=== PATIENT | male | born 1985 | race American Indian/Alaskan Native ===

== ENCOUNTER 2020-06-27 14:19 | Emergency (ER) | payer MEDICAID, SELFPAY ==
--- NOTE | 2020-06-27 15:39 | ED.GENADULT ---
HPI - General Adult General Chief complaint: General Medical Stated complaint: sore throat Time Seen by Provider: 06/27/20 15:39 Source: patient Mode of arrival: ambulatory Limitations: no limitations History of Present Illness HPI narrative: 34 y/o male presenting with sore throat x6 days. He has been using warm salt water gargles and Chloraseptic spray with some mild improvement. He has been smoking excessive marijuana which he thinks is worsening his sore throat. He denies all other symptoms of URI. He has no exposure to COVID-19. No fever, chills, N/V, cough, SOB or chest pain. MD complaint: sore throat Related Data Previous Rx's Medication Instructions Recorded amoxicillin 500 mg PO Q12H #20 tab 06/27/20 Allergies Allergy/AdvReac Type Severity Reaction Status Date / Time No Known Allergies Allergy Unverified 05/07/20 16:15 Review of Systems Review of Systems: Constitutional: No Fever, No Chills ENT/Mouth: + sore throat, No Rhinorrhea, + Swallowing Difficulty Eyes: No Eye Pain, No Swelling, No Redness Cardiovascular: No Chest Pain, No SOB, No Orthopnea, No Edema Respiratory: No Cough, No Sputum, No Wheezing, No dyspnea Gastrointestinal: No Nausea, No Vomiting, No Diarrhea, No abdominal Pain, No Hematochezia, No Melena Genitourinary: No Dysuria, No Urinary Frequency, No Hematuria Musculoskeletal: No joint pain, No Myalgias Skin: No Skin Lesions, No rash Neuro: No Weakness, No Numbness, No Dizziness, No Headache Psych: No Anxiety/Panic, No Depression Heme/Lymph: No Bruising, No Lymphadenopathy Endocrine: No Polyuria, No Polydipsia PMFSH Past Medical History Attestation statement: The following information was validated with the patient. Medical History (Updated 06/27/20 @ 15:49 by ROSEMARIE Nobles) No known health problems Social History Social History Advance Directives: No Advance Directives Information Provided: No Physical Exam Vital Signs: Vital Signs: Last Vital Signs Temp 98.6 F 06/27/20 15:40 Pulse 73 06/27/20 15:40 Resp 20 06/27/20 15:40 BP 132/76 06/27/20 15:40 Pulse Ox 99 06/27/20 15:40 Body Mass Index 34.4 Appearance: Alert. Oriented X3. No acute distress. Eyes: Pupils equal, round and reactive to light. ENT: moderate pharyngeal erythema with tonsillar exudates bilaterally, R>L. No evidence of peritonsillar abscess. Neck: Normal inspection. Neck supple. CVS: Normal heart rate and rhythm. Pulses normal. Respiratory: No respiratory distress. Breath sounds normal. Abdomen: Soft and nontender. +BS x4 Skin: Skin warm and dry. Normal skin color. Normal skin turgor. No rashes. Extremities: No lower extremity edema. Neuro: Oriented X 3. No motor deficit. No sensory deficit. Course Course Course Narrative: exam consistent with Strep pharyngitis. No signs of peritonsillar abscess. Patient was not cooperative with throat swab. Will empirically treat for Strep. Pateint agrees with plan. This is his 3rd episode of pharyngitis in the last 2 years, he would like referral to ENT for possible tonsillectomy. Stable for d/c. Discharge Plan Discharge Clinical Impression: Pharyngitis Qualifiers: Pharyngitis/tonsillitis etiology: streptococcus Qualified Code(s): J02.0 - Streptococcal pharyngitis Patient Disposition: Home, Self-Care Instructions: Strep Throat (ED) Additional Instructions: Use warm salt water gargles 3-4 times per day. Take the entire course of antibiotics prescribed. Use over the counter Chloraseptic spray or Cepacol lozenges for sore discomfort. If you develop worsening pain, difficulty swallowing, change in voice or are unable to swallow your own saliva come back to the ER for further evaluation. Prescriptions: New amoxicillin 500 mg tablet 500 mg PO Q12H Qty: 20 RF: 0 Referrals: Ruslan Lorenzo [Physician] - 2 days Interventions: ED Discharge Assessment Last Done: 06/27/20 16:27 Discharge Date/Time: 06/27/20 16:31
[2020-06-27 15:40] VITALS: BP 132/76; PULSE 73; RESP 20; TEMP 37; O2SAT 99; BMI 34.4
== END 2020-06-27 16:31 | disposition home or self-care (01) ==
LOC: HO.ED 15:59
PROVIDERS: Emergency Provider Emergency Medicine
DX: J02.0 Streptococcal pharyngitis (principal)
CPT/HCPCS: 99283

== ENCOUNTER 2021-01-12 10:51 | Inpatient (IN) | payer OTHER, SELFPAY ==
[2021-01-12 10:56] VITALS: BP 146/74; PULSE 88; RESP 16; TEMP 36.9; O2SAT 96; BMI 35.2
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
[2021-01-12 13:38] LABS: MANUAL DIFF FLAG NO
[2021-01-12 13:41] LABS: Basophils Percent Auto 0.6 % (0-2); Eosinophils Percent Auto 0.6 % (0-4); Hematocrit 42.6 % (42-52); Hemoglobin 14.4 g/dl (14.0-18.0); Imm Gran Abs Auto 0.03 X10*3/uL (0.00-0.03); Imm Gran Pct Auto 0.4 % (0.0-0.4); Lymphocytes Absolute Auto 1.6 X10*3/uL (1.2-4.9); Lymphocytes Percent Auto 23.9 % (20-40); Mean Corpuscular HGB Conc 33.8 g/dl (31.0-36.0); Mean Corpuscular Hemoglobin 31.4 pg (27.0-33.0); Mean Corpuscular Volume 92.8 fL (80-98); Monocytes Absolute Auto 0.5 X10*3/uL (0.1-1.2); Monocytes Percent Auto 6.7 % (2-11); Neutrophils Absolute Auto 4.7 X10*3/uL (2.0-8.3); Neutrophils Percent Auto 67.8 % (45-73); Platelet Count 258 X10*3/uL (160-400); Red Blood Count 4.59 X10*6/uL (4.60-5.80); Red Cell Distribution Width 13.4 % (11.0-16.0); White Blood Count 6.9 X10*3/uL (4.8-10.8)
[2021-01-12 14:10] LABS: Alanine Aminotransferase 33 U/L (0-40); Albumin Level 4.3 g/dL (3.5-5.0); Alkaline Phosphatase 64 U/L (39-117); Anion Gap 13 (12-20); Aspartate Amino Transferase 19 U/L (5-37); Bilirubin Direct 0.2 mg/dL (0.0-0.5); Bilirubin Total 0.2 mg/dL (0.0-1.0); Blood Urea Nitrogen 10 mg/dL (9-16); Calcium 9.5 mg/dL (8.4-10.2); Carbon Dioxide 24 mmol/L (22-29); Chloride 108 mmol/L (96-108); Creatinine Clr Calc Pharmacy 126.5; Estimated Glomerular Filt Rate > 60; Glucose Random 107 mg/dL (60-115); Potassium 4.1 mmol/L (3.3-5.1); Sodium 141 mmol/L (135-145)
[2021-01-12 14:20] LABS: Amphetamine Screen Urine Not Detected (Not Detect); Barbiturates, Urine Not Detected (Not Detect); Benzodiazepines Screen Urine Not Detected (Not Detect); Cannabinoid Screen Urine POSITIVE (Not Detect); Cocaine Screen Urine Not Detected (Not Detect); Opiate Screen Urine Not Detected (Not Detect); Phencyclidine Screen Urine Not Detected (Not Detect)
--- NOTE | 2021-01-12 16:34 | MHC.CARE ---
N unable to provide a clinician to complete evaluation until later this evening. CARE team called N to report that the case will be taken over by the CARE team, and requested that pt's insurance be called and notified of this.
[2021-01-12] MEDS: LORazepam 1 MG TABLET 2 MG PO (16:41)
--- NOTE | 2021-01-12 16:44 | PC.NURSE ---
Late entry: BHN called stating no clinician would be available to eval pt until later on second shift, possibly not until third shift. This RN relayed this to the pt. Pt became agitated stating he had to get back to his home and that it is unlocked. Pt angry, wanting to self discharge this RN explained to pt due to his suicidal statements that staff could not d/c him until he has been evaluated by BHN or CARE team. Pt amenable to taking po ativan, medicated per mar. Ibrahim from CARE team in to assess pt at this time.
--- NOTE | 2021-01-12 18:07 | PC.NURSE ---
pt becoming agitated again regarding becoming a section 12 bedsearch. Security on standby. Per [place] [facility] will be taking pt tonight.
--- NOTE | 2021-01-12 18:13 | MHC.CARE ---
Pt was evaluated by CARE team disposition for inpt psychiatric level of care. Disposition was discussed with ED provider who is in agreement with plan for admission. M5 has an available male bed this evening and pt has been verbally presented for admission. [facility] has been contacted to initiate process of obtaining a prior authorization. Pt is aware of plan and is not agreeable. Given pt's level of risk for harm to self, he has been placed on a Section 12a pending admission. If pt is not voluntary for admission, he may be admitted on a Section 12b.
--- NOTE | 2021-01-12 20:53 | PC.NURSE ---
Patient calm and quiet in his room with his girl friend at bedside, patient swabbed for covid/pending result, awaiting M5 admission, will continue to monitor.
[2021-01-12 20:57] LABS: COVID-19 Test Negative (Negative); IDNOW Serial# 9DD0AD1C
[2021-01-13 01:34] VITALS: BMI 36.1
--- NOTE | 2021-01-13 01:54 | PC.ADMIT ---
At the beginning of admission Pt was calm, stable, cooperative, made good eye contact. Pt states he came to ED d/t SI over the past 3 days but he feels ready to go home now. Care Team Assessment reports he made a noose and suspended it from a rafter in his basement. Pt was inconstant reporting alcohol use. Pt seems to have limited insight. Pt denies SI and HI. Pt contracts for safety and is in control of aggressive impulses. Pt reports acid changed him from a violent/bad person to a much better person 4 years ago but when he took it again 4 months ago, it did not have the same effect. Pt was describing a damaging effect. Pt has been dealing with many stressors: Losing his Job, losing his car, he is in court to keep his house. Pt was surprised to find out he had a roommate and quickly became paranoid and agitated stating that he was forced to sign documents and he came here of his own free will to get restarted on meds and now he cant leave. Pt assured us he will be leaving tomorrow. Pt was allowed to sleep in room 505 for the night. Pt labile, paranoid, but not aggressive.
[2021-01-13 05:54] VITALS: BP 137/86; PULSE 74; TEMP 36.4; O2SAT 99
--- NOTE | 2021-01-13 07:59 | PC.NURSE ---
3 day notice submitted
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
[2021-01-13] MEDS: FLUoxetine HCl Oral Solution 20 MG/5 ML SOLUTION 10 MG PO (11:05)
--- NOTE | 2021-01-13 14:19 | PM.PSYDC ---
DS: Providers Provider Date of Service: 01/13/21 Date of admission: 01/12/21 22:59 Date of discharge: 01/13/21 Primary care physician: Unknown Physician Attending physician on discharge: Robi Chaves DS: Diagnosis Discharge Diagnosis (1) Adjustment disorder with depressed mood: Status: Acute DS: Medications Discharge Medications Home Medications: Previous Rx's Medication Instructions Recorded amoxicillin 500 mg PO Q12H #20 tab 06/27/20 Discharge Plan Discharge Patient Disposition: Home, Self-Care Discharge Diagnosis: Adjustment disorder with depressed mood Referrals: Tracy Thrasher (Therapy) [Other] - 01/20/21 11:00 am (This appointment is via Telehealth) Ruma Ferrer (Psychiatry) [Other] - 02/08/21 11:00 am (This appointment is via Telehealth) Ruma Ferrer (Psychiatry) [Other] - 03/09/21 11:00 am (This appointment is via Telehealth) [facility] [Other] - 1 Week (Please call [facility] for telephone support and additional resources if you are unable to reach your outpatient providers and are experiencing a mental health crisis. They are open 13/03.) Physician,Unknown [Primary Care Provider] - 1 Week Discharge Medications: New trazodone 50 mg Tablet 50 mg PO BEDTIME PRN (Reason: Insomnia) 14 Days Qty: 14 RF: 0 fluoxetine [Prozac] 10 mg capsule 10 mg PO DAILY Qty: 14 RF: 1 Continued amoxicillin 500 mg tablet 500 mg PO Q12H Qty: 20 RF: 0 Discharge Orders: Discharge Order (Routine); Ordered 01/13/21 Ordered By: Robi Chaves Diet: advance to usual diet Activity on Discharge: As tolerated Stand Alone Forms: Patient Portal Discharge page, Community Support Care Plan Goals: Continue with Care plan goals Health Concerns: Continue treatment by PCP Plan of Treatment: Continue with PHP for psychiatric treatment Assessment: Adult Puertor[place] male, highly functional at [facility] with several stressors, admitted for the report of suicidality, but he adamantly denied it and he wants to be treated as an outpatient. Mental Status Exam Mental Status Exam Patient Appearance: Well Grooomed Patient Orientation: Person, Place, Time and Situation Level of Consciousness: Awake and Appropriate Patient Behavior: Appropriate Mood Description: Calm Affect Description: Constricted Patient Cognition Impaired: No Ability to Follow Directions: Good Speech Pattern: Clear Memory Description: Intact Hallucinations: None Delusions: Not Present Thought Process: Goal Oriented Thought Content: positive for Intact Depressive Symptoms: Increased Anxiety Judgement: Fair Data Data Completed and Pending Completed studies during hospitalization [Text1]: 01/12/21 01/12/21 01/12/21 13:24 13:24 13:31 WBC 6.9 RBC 4.59 L Hgb 14.4 Hct 42.6 MCV 92.8 MCH 31.4 MCHC 33.8 RDW 13.4 Plt Count 258 MPV 10.0 Immature Gran % (Auto) 0.4 Neut % (Auto) 67.8 Lymph % (Auto) 23.9 [place] % (Auto) 6.7 Eos % (Auto) 0.6 Baso % (Auto) 0.6 Lymph # (Auto) 1.6 [place] # (Auto) 0.5 Eos # (Auto) 0.0 Baso # (Auto) 0.0 Abs Immat Gran (auto) 0.03 Absolute Neuts (auto) 4.7 Absolute Nucleated RBC 0.000 Nucleated RBC % (auto) 0.0 Sodium 141 Potassium 4.1 Chloride 108 Carbon Dioxide 24 Anion Gap 13 BUN 10 Creatinine 0.91 Estim Creat Clear Calc 126.5 Estimated GFR > 60 Random Glucose 107 Calcium 9.5 Total Bilirubin 0.2 Direct Bilirubin 0.2 AST 19 ALT 33 Alkaline Phosphatase 64 Total Protein 7.0 Albumin 4.3 Urine Opiates Screen Not Detected Ur Barbiturates Screen Not Detected Ur Phencyclidine Scrn Not Detected Ur Amphetamines Screen Not Detected U Benzodiazepines Scrn Not Detected Urine Cocaine Screen Not Detected U Marijuana (THC) Screen POSITIVE H COVID-19 (TIA) COVID-19 Clin Com 01/12/21 20:29 WBC RBC Hgb Hct MCV MCH MCHC RDW Plt Count MPV Immature Gran % (Auto) Neut % (Auto) Lymph % (Auto) [place] % (Auto) Eos % (Auto) Baso % (Auto) Lymph # (Auto) [place] # (Auto) Eos # (Auto) Baso # (Auto) Abs Immat Gran (auto) Absolute Neuts (auto) Absolute Nucleated RBC Nucleated RBC % (auto) Sodium Potassium Chloride Carbon Dioxide Anion Gap BUN Creatinine Estim Creat Clear Calc Estimated GFR Random Glucose Calcium Total Bilirubin Direct Bilirubin AST ALT Alkaline Phosphatase Total Protein Albumin Urine Opiates Screen Ur Barbiturates Screen Ur Phencyclidine Scrn Ur Amphetamines Screen U Benzodiazepines Scrn Urine Cocaine Screen U Marijuana (THC) Screen COVID-19 (TIA) Negative COVID-19 Clin Com See Note DS: Summary Hospital Course Hospital Course: The patient was admitted by the ED since there was the report of suicidal ideation with the plan to hang himself. The patient had several psychosocial stressors in the last 3 months: he lost his job due to the pandermia, he broke up with his girlfriend and his children moved out, also, he had financial constraints. He came to the ED asking to restart Prozac and Trazodone that historically has helped but apparently, there was the report of suicidality. During the intake interview, the patient was future oriented, his mood was midlyd dysphoric but his affect was bright with no evidence of safety concerns. He wanted to continue treatment by PHP instead of inpatient. The patient denied adamantly suicidal thoughts and collateral information was provided that corroborates the safety of the patient. Time spent discussing smoking cessation with patient: 3 to 10 minutes Status at Discharge Cognitive/behavioral status at discharge: Stable Functional status at discharge: independent ambulation Overall status at discharge: patient is back to baseline Time Spent with Patient Time attestation: Total time spent providing and/or coordinating discharge services: Time spent: Less than 30 minutes
== END 2021-01-13 15:10 | disposition home or self-care (01) | DRG 754 ==
LOC: HO.ED 20:28 → HO.PM5 23:09
PROVIDERS: Nurse Practitioner Family; Physician Assistant; Admitting Provider Psychiatry & Neurology Psychiatry; Emergency Provider Emergency Medicine; Visit Provider Psychiatry & Neurology Psychiatry
DX: F43.21 Adjustment disorder with depressed mood (principal); R45.851 Suicidal ideations; F17.200 Nicotine dependence, unspecified, uncomplicated; Z71.6 Tobacco abuse counseling; Z20.822 Contact with and (suspected) exposure to COVID-19; Z79.899 Other long term (current) drug therapy
CPT/HCPCS: 36415; 80048; 80076; 80307; 85025; 87635; 99285

== ENCOUNTER 2021-08-16 05:03 | Emergency (ER) | payer MEDICAID, SELFPAY ==
[2021-08-16 05:22] VITALS: BP 162/93; PULSE 64; RESP 20; TEMP 36.3; O2SAT 98; BMI 39.1
== END 2021-08-16 11:15 | disposition left against medical advice (07) ==
PROVIDERS: Emergency Provider Emergency Medicine
DX: M54.9 Dorsalgia, unspecified (principal)
CPT/HCPCS: 99281; 99282

== ENCOUNTER 2021-11-01 14:02 | Emergency (ER) | payer MEDICAID, SELFPAY ==
--- NOTE | ~2021-11-01 | XR_ITS ---
EXAMINATION: XR CHEST CLINICAL INFORMATION: Palpitations. COMPARISON: Chest radiograph dated from 05/16/2019. TECHNIQUE: PA view of the chest was obtained. FINDINGS: Stable appearance of the cardiomediastinal silhouette including left greater than right hilar fullness. No focal airspace opacities, pleural effusions or pneumothorax. No acute osseous abnormalities. The upper abdomen is within normal limits. XR/XR chest 1V IMPRESSION: No acute cardiopulmonary findings.
[2021-11-01 14:28] VITALS: BP 132/79; PULSE 60; RESP 17; TEMP 36.6; O2SAT 98; BMI 37.6
--- NOTE | 2021-11-01 15:49 | ECG_ITS ---
Test Reason : PALPITATIONS Blood Pressure : / mmHG Vent. Rate : 059 BPM Atrial Rate : 059 BPM P-R Int : 162 ms QRS Dur : 102 ms QT Int : 422 ms P-R-T Axes : 025 003 002 degrees QTc Int : 417 ms Sinus bradycardia Minimal voltage criteria for LVH, may be normal variant ( R in aVL ) Borderline ECG When compared with ECG of 16-MAY-2019 21:34, No significant change was found Referred By: Dionicio Merchant Electronically Signed By:HEATHER TSAI
[2021-11-01 16:14] LABS: MANUAL DIFF FLAG NO
[2021-11-01 16:16] LABS: Basophils Percent Auto 0.5 % (0-2); Eosinophils Percent Auto 0.3 % (0-4); Hematocrit 46.9 % (42.0-52.0); Hemoglobin 15.5 g/dl (14.0-18.0); Imm Gran Abs Auto 0.03 X10*3/uL (0.00-0.03); Imm Gran Pct Auto 0.4 % (0.0-0.4); Lymphocytes Absolute Auto 1.3 X10*3/uL (1.2-4.9); Mean Corpuscular Hemoglobin 31.1 pg (27.0-33.0); Mean Platelet Volume 9.9 fL (9.4-12.4); Monocytes Absolute Auto 0.5 X10*3/uL (0.1-1.2); Monocytes Percent Auto 6.9 % (2-11); Neutrophils Absolute Auto 5.8 x10*3/uL (2.0-8.3); Neutrophils Percent Auto 74.9 % (45-73); Platelet Count 282 X10*3/uL (160-400); Red Blood Count 4.99 X10*6/uL (4.60-5.80); Red Cell Distribution Width 13.5 % (11.0-16.0); White Blood Count 7.8 X10*3/uL (4.8-10.8)
[2021-11-01 16:21] LABS: INTERNATIONAL NORM RATIO 1.1 (0.9-1.1); Prothrombin Time 12.1 SEC (9.9-13.0)
[2021-11-01 16:24] LABS: Partial Thromboplastin Time 33.9 SEC (24.1-38.0)
[2021-11-01 16:33] LABS: D Dimer High Sensitivity < 150 NG/ML
[2021-11-01 16:40] LABS: Troponin-I High Sensitivity < 3.5 ng/L (<3.5-35.0)
[2021-11-01 16:44] LABS: Alanine Aminotransferase 24 U/L (0-40); Albumin Level 4.9 g/dL (3.5-5.0); Alkaline Phosphatase 63 U/L (39-117); Anion Gap 14 (12-20); Aspartate Amino Transferase 21 U/L (5-37); Bilirubin Total 0.3 mg/dL (0.0-1.0); Blood Urea Nitrogen 11 mg/dL (9-16); Calcium 10.1 mg/dL (8.4-10.2); Carbon Dioxide 27 mmol/L (22-29); Chloride 107 mmol/L (96-108); Creatinine Clr Calc Pharmacy 129.4; Estimated Glomerular Filt Rate > 60; Glucose Random 97 mg/dL (60-115); Potassium 4.6 mmol/L (3.3-5.1); Sodium 143 mmol/L (135-145); Total Protein 8.5 g/dL (6.5-8.0)
[2021-11-01 16:55] LABS: TSH reflex Free T4 1.39 uIU/mL (0.32-4.0)
--- NOTE | 2021-11-01 17:06 | MHC.CARE ---
Pt reports that he was in therapy prior to the pandemic, but hasn't been in therapy since. He reports increased anxiety attacks where he feels like he is going to have a heart attack and would like to be connected with outpatient psychiatric providers. CARE Team will refer pt to [facility].
--- NOTE | 2021-11-01 17:19 | ED.GENADULT ---
HPI - General Adult General Chief complaint: Anxiety Stated complaint: rapid heart beat Time Seen by Provider: 11/01/21 15:48 Source: patient Mode of arrival: ambulatory Limitations: no limitations History of Present Illness HPI narrative: 35-year-old male with history of anxiety, bipolar, depression presents to ED for palpitations and feeling anxious. patient states having anxiety and would like to speak to a care team consulted so they refer him back to program. Patient states always worrying and than having heart palpitations. patient states while at home started having worrisome thoughts and started having palpitations chest so he came to the ED to be evaluated more so to receive referred program for therapist and psychiatrist. Patient denies any suicidal or homicidal ideation. Related Data Previous Rx's Medication Instructions Recorded amoxicillin 500 mg tablet 500 mg PO Q12H #20 tab 01/13/21 fluoxetine 10 mg capsule (Prozac) 10 mg PO DAILY #14 cap 01/13/21 trazodone 50 mg tablet 50 mg PO BEDTIME PRN 14 Days #14 01/13/21 tab Allergies Allergy/AdvReac Type Severity Reaction Status Date / Time No Known Allergies Allergy Unverified 05/07/20 16:15 Review of Systems Review of Systems: Palpitations Yes all other systems are reviewed and are negative [facility] Past Medical History Medical History No known health problems Social History Social History Household Members: None Housing: House Do you presently have visiting nurse or other home services: No Alcohol intake: current Alcohol intake frequency: holidays/special occasions only Substance Use Type: Hallucinogens and Marijuana Advance Directives: No Advance Directives Information Provided: No service: No Sexual orientation: Straight/Heterosexual Physical Exam ED Vital Signs: Vital Signs - 24 hr 11/01/21 14:28 Temperature 98 F Pulse Rate 60 Respiratory Rate 17 Blood Pressure 132/79 Pulse Oximetry 98 BMI result Body Mass Index 37.6 Const General: cooperative, healthy appearing, comfortable, no acute distress, well developed, alert, awake and Physically active Orientation/consciousness: patient oriented x3 HENMT Head: Yes normal to inspection, Yes No palpable skull fracture present, Yes normocephalic and Yes atraumatic Ears: hearing grossly normal bilaterally, external ears normal, TM's normal bilaterally, EAC's normal, mastoids normal and no periauricular adenopathy Eyes General: appearance normal, both eyes and all related structures Neck Neck: Yes normal visual inspection, Yes full ROM, Yes no lymphadenopathy, Yes trachea midline, No supple, No anterior neck swelling and Yes tender Chest Chest palpation & inspection: normal inspection of the chest and normal palpation of entire chest wall Resp Effort & Inspection: normal respiratory effort and able to speak in complete sentences Auscultation: clear to auscultation bilaterally Cardio Jugular venous distension: no JVD Heart sounds: S1 normal heart sound present and S2 normal heart sound present GI Inspection: Yes normal to inspection and No abdominal wall ecchymosis Palpation (GI): Soft to palpation, not firm, nontender, no guarding and not rigid General: No CVA tenderness and Yes no CVA tenderness Back/Spine/Pelvis Back: no CVA tenderness, No CVA tenderness and No back tenderness Skin General skin exam: no rashes or lesions noted and elasticity normal Neuro Other: negative facial droop. Negative slurred speech. Negative pronoatr drift. All extremities equal strength 5+. Finger to nose rapid hand movement intact. Negative Romberg. NIH score is 0. General: patient oriented x3, gait normal, tone normal, moves all extremities and Normal light touch and pain sensation Cranial nerves: Yes CN's II-XII intact bilaterally Extrem Other: lower extremities negative for pitting edema, calf tenderness, erythema or swelling Psych Appearance: grossly normal, well kempt and not disheveled Course Course Course Narrative: will do medical evaluation including cardiac due to patient stating palpitations. Patient presently denies any palpitation but wants to be seen for anxiety Reevaluation(s) Reevaluation #1: EKG negative for STEMI. D-dimer and troponin and TSH negative. Rest of labs are normal. Care team consulted Catrina roland and evaluated patient referred him to a therapist and psychiatrist. Time: 18:48 Medical Decision Making [facility] Narrative Medical decision making narrative: anxiety. Palpitation Lab Data Result diagrams: 11/01/21 16:03 11/01/21 16:03 Labs: Lab Results 11/01/21 11/01/21 11/01/21 Range/Units 16:03 16:03 16:03 WBC 7.8 (4.8-10.8) X10*3/uL RBC 4.99 (4.60-5.80) X10*6/uL Hgb 15.5 (14.0-18.0) g/dl Hct 46.9 (42.0-52.0) % MCV 94.0 (80.0-98.0) fL MCH 31.1 (27.0-33.0) pg MCHC 33.0 (31.0-36.0) g/dl RDW 13.5 (11.0-16.0) % Plt Count 282 (160-400) X10*3/uL MPV 9.9 (9.4-12.4) fL Immature Gran % (Auto) 0.4 (0.0-0.4) % Neut % (Auto) 74.9 H (45-73) % Lymph % (Auto) 17.0 L (20-40) % [place] % (Auto) 6.9 (2-11) % Eos % (Auto) 0.3 (0-4) % Baso % (Auto) 0.5 (0-2) % Lymph # (Auto) 1.3 (1.2-4.9) X10*3/uL [place] # (Auto) 0.5 (0.1-1.2) X10*3/uL Eos # (Auto) 0.0 (0.0-0.4) X10*3/uL Baso # (Auto) 0.0 (0.0-0.2) X10*3/uL Abs Immat Gran (auto) 0.03 (0.00-0.03) X10*3/uL Absolute Neuts (auto) 5.8 (2.0-8.3) x10*3/uL Absolute Nucleated RBC 0.000 (0.0-0.012) X10*3/uL Nucleated RBC % (auto) 0.0 (0.0-0.2) /100WBC PT 12.1 (9.9-13.0) SEC INR 1.1 (0.9-1.1) APTT 33.9 (24.1-38.0) SEC D-Dimer High Sensitivty < 150 NG/ML Sodium 143 (135-145) mmol/L Potassium 4.6 (3.3-5.1) mmol/L Chloride 107 (96-108) mmol/L Carbon Dioxide 27 (22-29) mmol/L Anion Gap 14 (12-20) BUN 11 (9-16) mg/dL Creatinine 0.98 (0.5-1.4) mg/dL Estim Creat Clear Calc 129.4 Estimated GFR > 60 Random Glucose 97 (60-115) mg/dL Calcium 10.1 D (8.4-10.2) mg/dL Total Bilirubin 0.3 (0.0-1.0) mg/dL AST 21 (5-37) U/L ALT 24 (0-40) U/L Alkaline Phosphatase 63 (39-117) U/L Troponin I High Sens (<3.5-35.0) ng/L Total Protein 8.5 H D (6.5-8.0) g/dL Albumin 4.9 (3.5-5.0) g/dL TSH 1.39 (0.32-4.0) uIU/mL 11/01/21 Range/Units 16:03 WBC (4.8-10.8) X10*3/uL RBC (4.60-5.80) X10*6/uL Hgb (14.0-18.0) g/dl Hct (42.0-52.0) % MCV (80.0-98.0) fL MCH (27.0-33.0) pg MCHC (31.0-36.0) g/dl RDW (11.0-16.0) % Plt Count (160-400) X10*3/uL MPV (9.4-12.4) fL Immature Gran % (Auto) (0.0-0.4) % Neut % (Auto) (45-73) % Lymph % (Auto) (20-40) % [place] % (Auto) (2-11) % Eos % (Auto) (0-4) % Baso % (Auto) (0-2) % Lymph # (Auto) (1.2-4.9) X10*3/uL [place] # (Auto) (0.1-1.2) X10*3/uL Eos # (Auto) (0.0-0.4) X10*3/uL Baso # (Auto) (0.0-0.2) X10*3/uL Abs Immat Gran (auto) (0.00-0.03) X10*3/uL Absolute Neuts (auto) (2.0-8.3) x10*3/uL Absolute Nucleated RBC (0.0-0.012) X10*3/uL Nucleated RBC % (auto) (0.0-0.2) /100WBC PT (9.9-13.0) SEC INR (0.9-1.1) APTT (24.1-38.0) SEC D-Dimer High Sensitivty NG/ML Sodium (135-145) mmol/L Potassium (3.3-5.1) mmol/L Chloride (96-108) mmol/L Carbon Dioxide (22-29) mmol/L Anion Gap (12-20) BUN (9-16) mg/dL Creatinine (0.5-1.4) mg/dL Estim Creat Clear Calc Estimated GFR Random Glucose (60-115) mg/dL Calcium (8.4-10.2) mg/dL Total Bilirubin (0.0-1.0) mg/dL AST (5-37) U/L ALT (0-40) U/L Alkaline Phosphatase (39-117) U/L Troponin I High Sens < 3.5 (<3.5-35.0) ng/L Total Protein (6.5-8.0) g/dL Albumin (3.5-5.0) g/dL TSH (0.32-4.0) uIU/mL ECG Data Interpretation: sinus bradycardia. Ventricular rate is 54. Parents were 158. QRS 100. QTC 400. Negative STEMI Discharge Plan Discharge Clinical Impression: Acute anxiety, Heart palpitations Patient Disposition: Home, Self-Care Instructions: Heart Palpitations (ED), Anxiety (ED) Additional Instructions: BLOOD WORK AND EKG CAME BACK NORMAL. ALK CARE TEAM SENIOR SECURITY ANALYST SPOKE WITH YOU AND GIVE YOU REFERRALS FOR PSYCHIATRIST AND THERAPIST PROGRAM. PLEASE CALL BOTH FOR FOLLOW-UP. RETURN TO THE ED IMMEDIATELY FOR ANY CHEST PAIN, SHORTNESS OF BREATH, RECURRENT PALPITATIONS, LEG SWELLING, CALF PAIN, COUGHING UP BLOOD, WEAKNESS, FEVER, CHILLS, OR ANY OTHER CONCERNING SYMPTOMS. Prescriptions: No Action trazodone 50 mg Tablet 50 mg PO BEDTIME PRN (Reason: Insomnia) 14 Days Qty: 14 0RF fluoxetine [Prozac] 10 mg capsule 10 mg PO DAILY Qty: 14 1RF amoxicillin 500 mg tablet 500 mg PO Q12H Qty: 20 0RF Interventions: ED Discharge Assessment Last Done: 11/01/21 18:22 Discharge Date/Time: 11/01/21 18:23 Print Language: Ukrainian
== END 2021-11-01 18:23 | disposition home or self-care (01) ==
PROVIDERS: Physician Assistant; Emergency Provider Emergency Medicine
DX: R00.2 Palpitations (principal); F41.9 Anxiety disorder, unspecified; F43.21 Adjustment disorder with depressed mood; F12.90 Cannabis use, unspecified, uncomplicated; Z79.899 Other long term (current) drug therapy
CPT/HCPCS: 36415; 71045; 80053; 84443; 84484; 85025; 85379; 85610; 85730; 93005; 99283

== ENCOUNTER → 2021-12-30 13:58 | Outpatient (BNVA) | payer MEDICAID, SELFPAY | PROVIDERS: PCP Family Medicine; Referring Provider Family Medicine; Visit Provider Internal Medicine Cardiovascular Disease | DX: R00.2 Palpitations (principal) | CPT/HCPCS: 99202 ==

== ENCOUNTER 2022-01-02 13:59 | Emergency (ER) | payer MEDICAID, SELFPAY ==
[2022-01-02] VITALS (9 sets, daily range): BP systolic 113–157; BP diastolic 64–97; PULSE 64–85; RESP 14–24; TEMP 36.4–37.2; O2SAT 96–100; BMI 40.3
--- NOTE | ~2022-01-02 | XR_ITS ---
EXAMINATION: XR CHEST CLINICAL INFORMATION: Decreased breath sounds right COMPARISON: Chest radiograph 11/01/2021 TECHNIQUE: Frontal view of the chest was obtained. FINDINGS: Compared to the prior study, the lungs are markedly hypoinflated. There is new left basilar atelectasis with some minimal obscuration of the short segment right hemidiaphragm. No pleural effusions are seen. No evidence of CHF. Heart size normal. XR/XR chest 1V IMPRESSION: Hypoinflated lungs with new left lower lobe atelectasis.
--- NOTE | ~2022-01-02 | XR_ITS ---
EXAMINATION: XR SHOULDER, LEFT CLINICAL INFORMATION: Status post reduction of left shoulder dislocation. COMPARISON: Left shoulder x-rays of 01/02/2022, obtained at 2:51 PM. TECHNIQUE: A single AP view of the left shoulder. FINDINGS: Glenohumeral joint alignment is normal on the submitted AP view. Acromioclavicular joint alignment is maintained. No definite associated fracture is noted. No dystrophic soft tissue calcifications. Visualized thorax is unremarkable. XR/XR shoulder LT 1V IMPRESSION: On submitted single AP view of the left shoulder the glenohumeral joint alignment is normal. No associated acute osseous fracture.
--- NOTE | ~2022-01-02 | XR_ITS ---
EXAMINATION: XR SHOULDER, LEFT CLINICAL INFORMATION: Deformity. Decreased range of motion. COMPARISON: None TECHNIQUE: Three views of the left shoulder. FINDINGS: There is anterior inferior dislocation of the humeral head with respect to the glenoid. There is a cortical deformity of the humeral head questionable for Hill-Sachs lesion. No other fracture is seen. Soft tissues are unremarkable. XR/XR shoulder LT min 2V IMPRESSION: Left shoulder dislocation.
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
[2022-01-02] MEDS: Morphine Sulfate 10 MG/ML CARTRIDGE 6 MG IVPUSH (19:20)
--- NOTE | 2022-01-02 19:20 | PC.NURSE ---
Dr. Stiles and Michael HOUSTON at bedside for conscious sedation. Timeout done for pt Deondre Paredes for procedure Left shoulder reduction with anterior rotation 100mg propofol administered by Dr. Stiles. Pt also premedicated with morphine 6 mg and zofran 4mg. Pt appears to be tolerating procedure well, will continue to monitor.
[2022-01-02] MEDS: ondansetron HCL 4 MG/2 ML VIAL IVPUSH (19:22)
[2022-01-02] MEDS: propofoL 200 MG/20 ML VIAL IVPUSH (19:23)
--- NOTE | 2022-01-02 19:39 | PC.NURSE ---
Pt has been alert during procedure, procedure went well pt is in a left arm sling, shoulder has been reduced. Pt is talking on cell phone during procedure.
--- NOTE | 2022-01-02 19:46 | PC.NURSE ---
Pt is alert, talkative, and vital signs stable, tolerating sedation well.
--- NOTE | 2022-01-02 19:48 | PC.NURSE ---
Pt awake A&O x4 vital signs stable. Sedation period over, will continue to monitor periodically until discharge.
== END 2022-01-02 21:15 | disposition home or self-care (01) ==
PROVIDERS: Emergency Provider Internal Medicine
DX: S43.005A Unspecified dislocation of left shoulder joint, initial encounter (principal); R06.89 Other abnormalities of breathing; Y04.0XXA Assault by unarmed brawl or fight, initial encounter; Y93.9 Activity, unspecified; Y92.9 Unspecified place or not applicable; Y99.9 Unspecified external cause status
CPT/HCPCS: 23650; 71045; 73020; 73030; 96374; 96375; 99284; 99291; J2270; J2405

== ENCOUNTER → 2022-01-11 08:44 | Outpatient (BNVA) | payer MEDICAID, SELFPAY | PROVIDERS: Visit Provider Physician Assistant | DX: S43.015A Anterior dislocation of left humerus, initial encounter (principal) | CPT/HCPCS: 99202 ==

== ENCOUNTER → 2022-04-01 13:04 | Outpatient (REF) | payer MEDICAID, SELFPAY ==
--- NOTE | 2022-04-01 13:19 | ECG_ITS ---
Hook-up date: 2022-04-01 12:33:00 Duration: 47:59:00 Test Indications: PALPITATIONS, SOB Medications: 156995 QRS complexes 1 Ventricular ectopics which represent <1 % of total QRS comp. 4 Supraventricular ectopics which represent <1 % of total QRS comp. * Paced QRS complexs which represent % of total QRS comp. VENTRICULAR ECTOPY 1 Isolated 0 Bigeminal Cycles 0 Couplets 0 Runs 0 Beats in Runs * Beats LONGEST at * BPM at :: -- * Beats FASTEST at * BPM at :: -- SUPRAVENTRICULAR ECTOPY 2 Isolated 1 Couplets 0 Runs 0 Beats in Runs * Beats LONGEST at * BPM at :: -- * Beats FASTEST at * BPM at :: -- HEART RATES 44 MIN at 09:28:05 2022-04-02 71 AVG 129 MAX at 23:58:42 2022-04-01 LONGEST RR 1.4720 secs at 04:51:39 2022-04-03 S-T LEVELS Channel 1 - 128 mm at 12:33:00 2022-04-01 - 128 mm at 12:33:00 2022-04-01 Channel 2 - 128 mm at 12:33:00 2022-04-01 - 128 mm at 12:33:00 2022-04-01 Channel 3 - 128 mm at 03:15:21 -- - 128 mm at 03:15:21 Basic rhythm Normal sinus rhythm No long pause or profound bradycardia No dangerous dysrhythm periods No diary submitted Referred By: Richard Quintero Overread By: RICHARD QUINTERO MD
== END ==
LOC: HO.CARD 13:04
PROVIDERS: Visit Provider Internal Medicine Cardiovascular Disease
DX: R06.02 Shortness of breath (principal); R00.2 Palpitations
CPT/HCPCS: 93225; 93226

== ENCOUNTER 2022-08-03 21:17 | Emergency (ER) | payer MEDICAID, SELFPAY ==
--- NOTE | ~2022-08-03 | US_ITS ---
EXAMINATION: US ABDOMEN LIMITED CLINICAL INFORMATION: Right upper quadrant pain question cholecystitis. COMPARISON: None TECHNIQUE: Real-time imaging of the right upper quadrant abdominal viscera. FINDINGS: PANCREAS: The visualized portions of the pancreas are unremarkable but the majority of the gland is obscured by bowel gas with the exception of a small portion of the pancreatic head. LIVER: The liver is normal in size. The liver contour is normal. There is diffuse increased liver parenchymal echogenicity, consistent with hepatic steatosis. No focal hepatic lesion. There is no intrahepatic biliary duct dilatation seen. GALLBLADDER: The gallbladder is physiologically distended without evidence of stones, sludge, polyps, wall thickening or pericholecystic fluid. COMMON BILE DUCT: Normal in caliber measuring 0.2 cm in diameter. RIGHT KIDNEY: No hydronephrosis. No renal calculi or focal parenchymal lesions. The kidney measures 10.5 cm in maximum dimension. FREE FLUID: None. US/US abdomen limited IMPRESSION: 1. Hepatic steatosis. 2. Normal-appearing gallbladder without evidence of cholecystitis. 3. A cause for the patient's right upper quadrant pain has not been found.
[2022-08-03 22:07] VITALS: BP 137/101; PULSE 73; RESP 18; TEMP 36.7; O2SAT 96; BMI 41.1
--- NOTE | 2022-08-03 22:31 | ED_ITS ---
HPI - Abdominal Pain General Chief Complaint: Abdominal Pain Stated Complaint: Right side pain Time Seen by Provider: 08/03/22 22:29 Source: patient Mode of arrival: ambulatory Limitations: no limitations History of Present Illness HPI narrative: Patient comes here for right upper quadrant pain for last month or so with no relation to food no nausea no vomiting or diarrhea no fever or chills patient does not drink alcohol Related Data Previous Rx's Medication Instructions Recorded fluoxetine 10 mg capsule (Prozac) 10 mg PO DAILY #14 caps 01/13/21 trazodone 50 mg tablet 50 mg PO BEDTIME PRN Insomnia 14 01/13/21 days #14 tabs oxycodone 5 mg capsule 5 mg PO BID PRN pain #8 caps 01/02/22 Allergies Allergy/AdvReac Type Severity Reaction Status Date / Time No Known Allergies Allergy Unverified 01/11/22 08:57 Review of Systems Review of Systems Yes all other systems are reviewed and are negative [facility] Past Medical History Medical History No known health problems Family History Family History Father No problems noted. Mother HTN (hypertension) Social History Social History Household Members: None Housing: House Do you presently have visiting nurse or other home services: No Alcohol intake: current Alcohol intake frequency: a few times a month Alcohol type: hard liquor Smoked in Last 30 Days: No Use of substances other than those prescribed or required for medical reasons: No Substance Use Type: Marijuana Advance Directives: No service: No Sexual orientation: Straight/Heterosexual Physical Exam ED Vital Signs: Vital Signs - 24 hr 08/03/22 22:07 08/03/22 23:26 Temperature 98.0 F 98.6 F Pulse Rate 73 72 Respiratory Rate 18 16 Blood Pressure 137/101 H 138/91 H Pulse Oximetry 96 97 Oxygen Delivery Method Room Air Room Air BMI result Body Mass Index 41.1 Appearance: Alert. Oriented X3. No acute distress. Eyes: PERRLA, No Nystagmus no pallor or icterus ENT: Pharynx normal. Oral Mucosa moist Neck: Normal inspection. Neck supple. CVS: Normal heart rate and rhythm. Pulses normal. Respiratory: No respiratory distress. Equal air entry bilateral, no wheezing/rales/rhonchi Abdomen: Soft and right upper quadrant tenderness no rebound tenderness no guarding Bowel sounds are present, no mass palpable, no CVA tenderness Skin: Skin warm and dry. Normal skin color. Normal skin turgor. Extremities: No lower extremity edema. No calf tenderness Neuro: Oriented X 3. No motor deficit. Medical Decision Making Medical Decision Making MDM Narrative: Patient's ultrasound showed hepatic steatosis all were empty patient comfortable discharge patient home advised to avoid carbohydrate and not to drink alcohol Lab Data Result Diagrams: 08/03/22 22:48 08/03/22 23:30 Labs: Lab Results 08/03/22 08/03/22 08/03/22 Range/Units 22:48 22:48 23:30 WBC 8.7 (4.8-10.8) X10*3/uL RBC 5.13 (4.60-5.80) X10*6/uL Hgb 15.7 (14.0-18.0) g/dl Hct 45.6 (42.0-52.0) % MCV 88.9 (80.0-98.0) fL MCH 30.6 (27.0-33.0) pg MCHC 34.4 (31.0-36.0) g/dl RDW 13.3 (11.0-16.0) % Plt Count 335 (160-400) X10*3/uL MPV 9.5 (9.4-12.4) fL Immature Gran % (Auto) 0.2 (0.0-0.4) % Neut % (Auto) 56.9 (45-73) % Lymph % (Auto) 31.5 (20-40) % Martin % (Auto) 8.6 (2-11) % Eos % (Auto) 1.5 (0-4) % Baso % (Auto) 1.3 (0-2) % Lymph # (Auto) 2.7 (1.2-4.9) X10*3/uL Martin # (Auto) 0.8 (0.1-1.2) X10*3/uL Eos # (Auto) 0.1 (0.0-0.4) X10*3/uL Baso # (Auto) 0.1 (0.0-0.2) X10*3/uL Abs Immat Gran (auto) 0.02 (0.00-0.03) X10*3/uL Absolute Neuts (auto) 4.9 (2.0-8.3) x10*3/uL Absolute Nucleated RBC 0.000 (0.0-0.012) X10*3/uL Nucleated RBC % (auto) 0.0 (0.0-0.2) /100WBC Sodium 140 (135-145) mmol/L Potassium 4.3 (3.3-5.1) mmol/L Chloride 107 (96-108) mmol/L Carbon Dioxide 24 (22-29) mmol/L Anion Gap 13 (12-20) BUN 14 (9-16) mg/dL Creatinine 1.12 (0.5-1.4) mg/dL Estim Creat Clear Calc 110.5 Estimated GFR > 60 Random Glucose 107 (60-115) mg/dL Calcium 9.8 (8.4-10.2) mg/dL Total Bilirubin 0.3 (0.0-1.0) mg/dL Direct Bilirubin < 0.2 (0.0-0.5) mg/dL AST 20 (5-37) U/L ALT 28 (0-40) U/L Alkaline Phosphatase 72 (39-117) U/L Total Protein 7.7 (6.5-8.0) g/dL Albumin 4.8 (3.5-5.0) g/dL Lipase 44 (8-78) U/L Urine Color Yellow Urine Appearance Clear Urine pH 6.5 (5.0-9.0) Ur Specific [place] >= 1.030 H (1.005-1.025) Urine Protein Trace (Neg-Trace) mg/dL Urine Glucose (UA) Negative (Negative) mg/dL Urine Ketones Trace (Negative) mg/dL Urine Blood Negative (Negative) Urine Nitrite Negative (Negative) Ur Leukocyte Esterase Negative (Negative) Discharge Plan Discharge Clinical Impression: Abdominal pain, Fatty liver Patient Disposition: Home, Self-Care Instructions: Non-Alcoholic Fatty Liver Disease (ED), Abdominal Pain (ED) Additional Instructions: Drink plenty of fluids avoid alcohol and carbohydrate Exercise Ibuprofen for pain as needed Prescriptions: No Action trazodone 50 mg Tablet 50 mg PO BEDTIME PRN (Reason: Insomnia) 14 Days Qty: 14 0RF fluoxetine [Prozac] 10 mg capsule 10 mg PO DAILY Qty: 14 1RF oxycodone 5 mg capsule 5 mg PO BID PRN (Reason: pain) Qty: 8 0RF Rx Instructions: Patient can partially filled prescription upon request Interventions: ED Discharge Assessment Last Done: 08/04/22 00:38 Discharge Date/Time: 08/04/22 00:38
[2022-08-03 22:54] LABS: MANUAL DIFF FLAG NO
[2022-08-03 22:56] LABS: Appearance Urine Clear; Basophils Absolute Auto 0.1 X10*3/uL (0.0-0.2); Basophils Percent Auto 1.3 % (0-2); Color Urine Yellow; Eosinophils Absolute Auto 0.1 X10*3/uL (0.0-0.4); Eosinophils Percent Auto 1.5 % (0-4); Glucose Urine UA Negative (Negative); Hematocrit 45.6 % (42.0-52.0); Hemoglobin 15.7 g/dl (14.0-18.0); Imm Gran Abs Auto 0.02 X10*3/uL (0.00-0.03); Imm Gran Pct Auto 0.2 % (0.0-0.4); Leukocyte Esterase Urine Negative (Negative); Lymphocytes Absolute Auto 2.7 X10*3/uL (1.2-4.9); Lymphocytes Percent Auto 31.5 % (20-40); Mean Corpuscular HGB Conc 34.4 g/dl (31.0-36.0); Mean Corpuscular Hemoglobin 30.6 pg (27.0-33.0); Mean Corpuscular Volume 88.9 fL (80.0-98.0); Mean Platelet Volume 9.5 fL (9.4-12.4); Monocytes Absolute Auto 0.8 X10*3/uL (0.1-1.2); Monocytes Percent Auto 8.6 % (2-11); Neutrophils Absolute Auto 4.9 x10*3/uL (2.0-8.3); Neutrophils Percent Auto 56.9 % (45-73); Nitrite Urine Negative (Negative); PH 6.5 (5.0-9.0); Platelet Count 335 X10*3/uL (160-400); Red Blood Count 5.13 X10*6/uL (4.60-5.80); Red Cell Distribution Width 13.3 % (11.0-16.0); Specific Gravity - Urine >= 1.030 (1.005-1.025); Urine Blood Negative (Negative); Urine Ketones Trace mg/dL (Negative); Urine Protein Trace mg/dL (Neg-Trace); White Blood Count 8.7 X10*3/uL (4.8-10.8)
--- NOTE | 2022-08-03 23:10 | PC.NURSE ---
Pt aox4. Reports right flank pain, 4/10. Familly at bedside. VSS. No apparent distress noted. IV access established with no issues or concerns. Lab work sent. Pending u/s. Pt aware of plan of care.
[2022-08-03 23:26] VITALS: BP 138/91; PULSE 72; RESP 16; TEMP 37; O2SAT 97
[2022-08-03 23:57] LABS: Alanine Aminotransferase 28 U/L (0-40); Albumin Level 4.8 g/dL (3.5-5.0); Alkaline Phosphatase 72 U/L (39-117); Anion Gap 13 (12-20); Aspartate Amino Transferase 20 U/L (5-37); Bilirubin Direct < 0.2 mg/dL (0.0-0.5); Blood Urea Nitrogen 14 mg/dL (9-16); Calcium 9.8 mg/dL (8.4-10.2); Carbon Dioxide 24 mmol/L (22-29); Chloride 107 mmol/L (96-108); Creatinine Clr Calc Pharmacy 110.5; Estimated Glomerular Filt Rate > 60; Glucose Random 107 mg/dL (60-115); Lipase 44 U/L (8-78); Potassium 4.3 mmol/L (3.3-5.1); Sodium 140 mmol/L (135-145); Total Protein 7.7 g/dL (6.5-8.0)
[2022-08-04 00:05] LABS: Bilirubin Total 0.3 mg/dL (0.0-1.0)
--- NOTE | 2022-08-04 00:31 | PC.NURSE ---
at the bedside.
--- NOTE | 2022-08-04 00:37 | PC.NURSE ---
IV removed. Pt tolerated well. Discharge instructions reviewed with pt. Pt verbalizes understanding.
== END 2022-08-04 00:38 | disposition home or self-care (01) ==
PROVIDERS: Emergency Provider Internal Medicine; PCP Internal Medicine Geriatric Medicine
DX: R10.11 Right upper quadrant pain (principal); K76.0 Fatty (change of) liver, not elsewhere classified; F12.90 Cannabis use, unspecified, uncomplicated
CPT/HCPCS: 36415; 76705; 80048; 80076; 81003; 83690; 85025; 99284

== ENCOUNTER 2022-08-25 08:48 | Outpatient (REF) | payer MEDICAID, SELFPAY ==
--- NOTE | ~2022-08-25 | CT_ITS ---
EXAMINATION: CT ABDOMEN AND PELVIS WITHOUT CONTRAST CLINICAL INFORMATION: Pain, tenderness right upper quadrant and right flank. Constipation. COMPARISON: Limited abdominal ultrasound 08/03/2022 TECHNIQUE: Multidetector volumetric imaging was performed from the superior aspect of the liver through the pubic symphysis. Sagittal and coronal reformatted images were obtained on the technologist's workstation. Examination performed without intravenous or oral contrast as per patient request. This CT examination was performed using dose optimization techniques as appropriate, variously including the following: *Automated exposure control *Adjustment of mA and/or kV according to patient size (this includes techniques or standardized protocols for targeted exams where dose is matched to indication/reason for exam; i.e. extremities or head) *Use of iterative reconstruction technique DLP: 783 mGy-cm FINDINGS: LUNG BASES: The visualized lung bases are unremarkable. LIVER, GALLBLADDER, AND BILIARY TREE: The liver is normal in size, shape, and attenuation. No focal hepatic lesion or biliary ductal dilatation is present. The gallbladder is unremarkable with no evidence of radiopaque gallstones, gallbladder wall thickening, or obvious pericholecystic inflammatory changes. PANCREAS: Unremarkable. SPLEEN: Unremarkable. ADRENAL GLANDS: Unremarkable. KIDNEYS AND URETERS: The kidneys are normal in size, shape, and attenuation. No hydronephrosis, hydroureter, or calculi seen. No perinephric stranding. BLADDER: Unremarkable. GASTROINTESTINAL TRACT: No bowel obstruction or focal inflammatory changes in the bowel or mesentery. Normal appendix. No ascites or fluid collection. No pneumatosis or free air. ABDOMINAL WALL: Small fat-containing umbilical hernia, approximately 2.3 cm. Small bilateral fat-containing inguinal hernias. LYMPH NODES: No lymphadenopathy. VASCULAR: Unremarkable. PELVIC VISCERA: Unremarkable. OSSEOUS STRUCTURES: Mild degenerative disc changes mid lumbar spine. CT/CT abdomen pelvis wo IV con IMPRESSION: 1. No bowel obstruction or focal inflammatory changes in bowel or mesentery. Normal appendix. 2. No hydronephrosis, calculi, or perinephric stranding. 3. Small fat-containing umbilical and bilateral inguinal hernias.
== END 2022-08-25 08:49 | disposition home or self-care (01) ==
LOC: HO.CT 08:48
PROVIDERS: PCP Emergency Medicine; Visit Provider Emergency Medicine
DX: R10.811 Right upper quadrant abdominal tenderness (principal)
CPT/HCPCS: 74176